=== PATIENT | female | born 1960 | race African-American/Black ===

== ENCOUNTER 2020-12-26 19:40 | Emergency (ER) | payer OTHER ==
[~2020-12-26] VITALS: Ht 160 cm; Wt 47.6 kg
[~2020-12-26 19:40] MED LIST: NORCO 5-325 TA1 EACH PO
[2020-12-26] MEDS ORDERED: LEVO-T50 MCG PO (20:10)
[2020-12-26] MEDS ORDERED: FUROSEMIDE 40 M40 MG PO (20:11)
[2020-12-26] MEDS ORDERED: LINZESS290 MCG PO (20:11)
[2020-12-26] MEDS ORDERED: BYSTOLIC10 MG PO (20:12)
[2020-12-26] MEDS ORDERED: ESZOPICLONE2 MG PO (20:13)
[2020-12-26] MEDS ORDERED: ALPRAZOLAM 0.0.25 M1 PO (20:14)
[2020-12-26] MEDS ORDERED: ESTRIOL PO (20:15)
[2020-12-26] MEDS ORDERED: ESTRADIOL PO (20:15)
[2020-12-26] MEDS ORDERED: [UNRECOGNIZED DRUG - OTHER] PO (20:15)
[2020-12-26] MEDS ORDERED: PROMETHAZINE PO (20:16)
[2020-12-26] MEDS ORDERED: BELBUCA75 MCG (20:24)
[2020-12-26 20:26] LABS: ABSOLUTE NEUTROPHILS 1.6 thou/uL (1.4-8.2); BASOPHILS 0.8 % (0.0-2.0); EOSINOPHILS 7.2 % (0.0-3.0); HEMATOCRIT 32.3 % (37.0-47.0); HEMOGLOBIN 10.8 gm/dL (12.0-15.0); LYMPHOCYTES 41.8 % (24.0-44.0); MCH 28.2 pg (26.0-34.0); MCHC 33.4 g/dL (28.0-37.0); MCV 84.2 fL (80.0-100.0); MONOCYTES 11.9 % (1.0-8.0); PLATELET COUNT 212 thou/uL (150-400); POLYS 38.3 % (36.0-66.0); RBC 3.83 mil/uL (4.20-5.00); WBC 4.3 thou/uL (4.0-11.0)
[2020-12-26 20:30] LABS: AMP/METHAMP Negative (Negative); BARBITURATES Negative (Negative); BENZODIAZEPINES Negative (Negative); COCAINE Negative (Negative); METHADONE Negative (Negative); OPIATES Negative (Negative); PCP Negative (Negative)
[2020-12-26 20:34] LABS: ANION GAP 7 mmol/L (7-16); BUN 11 mg/dL (7-18); CALCIUM 9.5 mg/dL (8.5-10.1); CHLORIDE 104 mmol/L (98-107); CO2 28 mmol/L (21-32); CREATININE 0.8 mg/dL (0.6-1.0); GLUCOSE 98 mg/dL (74-106); SODIUM 139 mmol/L (136-145)
[2020-12-26 20:35] LABS: POTASSIUM 4.2 mmol/L (3.5-5.1)
[2020-12-26 20:44] LABS: ALBUMIN 3.9 g/dL (3.4-5.0); SGOT 43 U/L (15-37); SGPT 28 U/L (14-59); TOTAL BILIRUBIN 0.3 mg/dL (0.2-1.0); TOTAL PROTEIN 7.4 g/dL (6.4-8.2); TROPONIN-I <0.06 ng/mL (<0.06)
[2020-12-26 21:06] LABS: PLATELET ESTIMATE NORMAL
[2020-12-26 23:29] VITALS: BP 153/78
--- NOTE | 2020-12-27 11:40 | EKG ---
[place] [place] [address] ELECTROCARDIOGRAM REPORT Name: FR[address] Room #: DEP OTNNY Ruiz#: [id number] Admission: 12/26/20 Attend Phys: Discharge: 12/26/20 Date of : 60 Report #: [id number] [facility] ED Test Date: 2020-12-26 Test Time: 20:31:02 Pat Name: FRANCES LANE Department: Room: Gender: F Rn Transition: freddie : 1960 Requested By: Bell Benedict Order Number: [id number] MD: Aaron Waters Measurements Intervals [place] Rate: 100 P: 20 AR: 121 QRS: 40 QRSD: 94 T: 21 QT: 275 QTc: 355 Interpretive Statements Sinus tachycardia RSR' in V1 or V2, right VCD Borderline T abnormalities, lateral leads No previous ECG available for comparison Electronically Signed On 12-27-2020 11:39:54 CDT by Aaron Waters [email or web address] <ELECTRONICALLY SIGNED> By: Aaron Waters MD, [facility] 12/27/20 1139 30 30 Aaron Waters MD, FACC /EPI
== END 2020-12-26 23:32 | disposition home or self-care (01) ==
LOC: ER 19:40
PROVIDERS: Physician Assistant
DX: R60.0 Localized edema (principal); K21.9 Gastro-esophageal reflux disease without esophagitis; I10 Essential (primary) hypertension; G43.909 Migraine, unspecified, not intractable, without status migrainosus; Z88.8 Allergy status to other drugs, medicaments and biological substances; Z79.899 Other long term (current) drug therapy